=== PATIENT | male | born 1955 | race Caucasian/White ===

== ENCOUNTER → 2016-09-15 | Outpatient (CLI) | payer OTHER ==
--- NOTE | 2016-09-15 11:46 | DX ---
Chest, PA and Lateral Views, 3 Views Total - September 15, 2016, at 11:04 a.m. Clinical History: 61-year-old male with a cough, fever, and shortness of breath for 2 weeks. Rule out pneumonia. ICD-10 Diagnostic Code: R05. Comparison Study: Chest, dated September 09, 2013. Findings: The cardiac size is normal. There is a moderate degree of central perihilar bronchial thic kening. There is no confluent infiltrate, pleural effusion, peripheral interstitial edema, or pneumot horax. There is eventration of the anterior right hemidiaphragm. There are degenerative features of t he spine. The trachea is midline. Impression: Moderate perihilar bronchitis, without a focal infiltrate.
== END ==
LOC: BRMIMAGING 10:59
PROVIDERS: ATTEND Physician Assistant Medical
DX: J40 Bronchitis, not specified as acute or chronic (principal)
CPT/HCPCS: 71020-PO

== ENCOUNTER 2018-05-31 16:13 | Inpatient (IN) | payer OTHER ==
--- NOTE | 2018-05-31 16:55 | EDPHY ---
H & P Stated Complaint: abbie/SOB Time Seen by Provider: 05/31/18 16:55 HPI/ROS: CHIEF COMPLAINT: Dyspnea HISTORY OF PRESENT ILLNESS: The patient presents to the ED for evaluation of months of dyspnea. The patient has a history of hypertension and obstructive sleep apnea. Patient had a outpatient chest x-ray performed today which demonstrated bronchitis versus questionable pneumonia and was referred to the ED for further evaluation. The patient denies any chest pain, asymmetric calf pain or swelling. Patient does report he is having significant dyspnea on exertion and fatigue. REVIEW OF SYSTEMS: A comprehensive 10 point review of systems is otherwise negative aside from elements mentioned in the history of present illness. Source: Patient - Personal History Current Tetanus/Diphtheria Vaccine: Yes - Medical/Surgical History Hx Asthma: No Hx Chronic Respiratory Disease: No Hx Diabetes: No Hx Cardiac Disease: Yes Hx Renal Disease: No Hx Cirrhosis: No Hx Alcoholism: No Other PMH: bilat knee replacement, gallbladder removed, achilles tendon torn left, appy - Social History Smoking Status: Former smoker - Physical Exam Exam: General Appearance: Obese male, tachypneic Eyes: Pupils equal and round no pallor or injection ENT, Mouth: Mucous membranes moist Respiratory: There are no retractions, lungs are clear to auscultation Cardiovascular: Regular rate and rhythm Gastrointestinal: Abdomen is soft and nontender, no masses, bowel sounds normal Neurological: A&O, normal motor function, normal sensory exam, normal cranial nerves Skin: Old surgical in incisions on knees Musculoskeletal: Neck is supple nontender Extremities: No pedal edema, no asymmetric calf swelling or tenderness appreciated Psychiatric: Patient is oriented X 3, there is no agitation Constitutional: Initial Vital Signs Temperature (C) 36.5 C 05/31/18 16:30 Heart Rate 62 05/31/18 16:30 Respiratory Rate 25 H 05/31/18 16:30 Blood Pressure 162/86 H 05/31/18 16:30 O2 Sat (%) 90 L 05/31/18 16:30 O2 Delivery Mode Room Air Allergies/Adverse Reactions: No Known Allergies Allergy (Verified 05/31/18 18:08) Home Medications: Medication Instructions Recorded Fluticasone Nasal [Flonase Nasal 1 sprays NASAL DAILY 05/31/18 [place] (RX)] Fluticasone/Umeclidin/Vilanter 1 each IH DAILY 05/31/18 [Trelegy Ellipta 100-62.5-25] Lorcaserin HCl [Belviq Xr] 20 mg PO DAILY 05/31/18 Losartan Potassium [Cozaar 50 mg 50 mg PO DAILY 05/31/18 (*)] Travoprost Z 0.004% [Travatan Z 1 drops EACHEYE DAILY 05/31/18 0.004% (*)] Medical Decision Making - Diagnostics EKG Interpretation: EKG: Complete interpretation has been separately recorded in the [facility] archive. Summary impression: Sinus rhythm, rate 64, right bundle branch block Imaging Results: Imaging Impressions Chest X-Ray 05/31/18 15:30 Impression: Moderate bronchitis. Question mild atelectasis or early infiltrate in the left lung base. CT chest pulmonary angiogram: Negative for PE. Coronary calcifications are noted, other incidental findings present. No evidence of aortic dissection. ED Course/Re-evaluation: The patient presents the ED with months of increasing dyspnea on exertion. The patient arrives with a normal oxygen saturation. Chest x-ray demonstrated evidence of bronchitis. EKG demonstrates a sinus rhythm with a right bundle branch block. Patient was placed on a air sampling and monitoring and was noted to have a sinus bradycardia with a heart rate into the mid 30s. The patient had no hypotension with these episodes. He is only on losartan. The patient had an int indeterminately elevated D-dimer. A CT pulmonary angiogram has been ordered. Given the patient's increasing dyspnea on exertion and bradycardia I do feel he should be admitted to the hospital for observation and a comprehensive cardiac evaluation. He has no evidence of a myocardial infarction based upon the workup in the ED today. Consultation was made with Dr. Stover from the hospitalist service who will admit the patient. Differential Diagnosis: Differential diagnosis considered includes pulmonary embolism, pneumonia, pneumothorax, myocardial infarction, pericardial effusion, heart failure - Data Points Laboratory Results: Laboratory Results 05/31/18 17:12 05/31/18 17:12 05/31/18 05/31/18 05/31/18 17:15 17:12 17:12 WBC RBC Hgb Hct MCV MCH MCHC RDW Plt Count MPV Neut % (Auto) Lymph % (Auto) [place] % (Auto) Eos % (Auto) Baso % (Auto) Nucleat RBC Rel Count Absolute Neuts (auto) Absolute Lymphs (auto) Absolute Monos (auto) Absolute Eos (auto) Absolute Basos (auto) Absolute Nucleated RBC Immature Gran % Immature Gran # D-Dimer 0.53 ug/mLFEU H ug/mLFEU (0.00-0.50) Sodium 137 mEq/L mEq/L (135-145) Potassium 4.2 mEq/L mEq/L (3.3-5.0) Chloride 104 mEq/L mEq/L (97-110) Carbon Dioxide 25 mEq/l mEq/l (22-31) Anion Gap 8 mEq/L mEq/L (8-16) BUN 16 mg/dL mg/dL (7-23) Creatinine 1.0 mg/dL mg/dL (0.7-1.3) Estimated GFR > 60 Glucose 96 mg/dL mg/dL (70-100) Calcium 9.1 mg/dL mg/dL (8.5-10.4) POC Troponin I 0.01 ng/mL ng/mL (0.00-0.08) NT-Pro-B Natriuret Pep 252 pg/mL H pg/mL (0-125) 05/31/18 17:12 WBC 7.67 10^3/uL 10^3/uL (3.80-9.50) RBC 4.30 10^6/uL L 10^6/uL (4.40-6.38) Hgb 13.9 g/dL g/dL (13.7-17.5) Hct 39.3 % L % (40.0-51.0) MCV 91.4 fL fL (81.5-99.8) MCH 32.3 pg pg (27.9-34.1) MCHC 35.4 g/dL g/dL (32.4-36.7) RDW 12.2 % % (11.5-15.2) Plt Count 178 10^3/uL 10^3/uL (150-400) MPV 9.7 fL fL (8.7-11.7) Neut % (Auto) 66.1 % % (39.3-74.2) Lymph % (Auto) 19.8 % % (15.0-45.0) [place] % (Auto) 10.6 % % (4.5-13.0) Eos % (Auto) 2.3 % % (0.6-7.6) Baso % (Auto) 0.5 % % (0.3-1.7) Nucleat RBC Rel Count 0.0 % % (0.0-0.2) Absolute Neuts (auto) 5.07 10^3/uL 10^3/uL (1.70-6.50) Absolute Lymphs (auto) 1.52 10^3/uL 10^3/uL (1.00-3.00) Absolute Monos (auto) 0.81 10^3/uL H 10^3/uL (0.30-0.80) Absolute Eos (auto) 0.18 10^3/uL 10^3/uL (0.03-0.40) Absolute Basos (auto) 0.04 10^3/uL 10^3/uL (0.02-0.10) Absolute Nucleated RBC 0.00 10^3/uL 10^3/uL (0-0.01) Immature Gran % 0.7 % % (0.0-1.1) Immature Gran # 0.05 10^3/uL 10^3/uL (0.00-0.10) D-Dimer Sodium Potassium Chloride Carbon Dioxide Anion Gap BUN Creatinine Estimated GFR Glucose Calcium POC Troponin I NT-Pro-B Natriuret Pep Point of Care Test Results: Chemistry 05/31/18 17:15 POC Troponin I 0.01 ng/mL ng/mL (0.00-0.08) Departure - Departure Disposition: [facility] Acute Clinical Impression: Dyspnea, Bradycardia Condition: Good
[2018-05-31 17:25] LABS: PLATELET COUNT 178 10^3/uL (150-400)
--- NOTE | 2018-05-31 17:40 | CPEKG ---
Test Reason : OPEN Blood Pressure : / mmHG Vent. Rate : 064 BPM Atrial Rate : 064 BPM P-R Int : 190 ms QRS Dur : 158 ms QT Int : 468 ms P-R-T Axes : 040 003 004 degrees QTc Int : 483 ms Sinus rhythm Right bundle branch block Confirmed by Booker Harding ([id number]) on 05/31/2018 5:39:47 PM Referred By: Confirmed By:Booker Harding
[2018-05-31] MEDS ORDERED: IOPAMIDOL (ISOVUE 370) 100 ML BTL IV ONE (17:49)
[2018-05-31] MEDS ORDERED: ONDANSETRON 4 MG/2 ML VIAL IVP PRN (18:01)
[2018-05-31] MEDS ORDERED: ONDANSETRON DISINTEGRATING 4 MG TAB PO PRN (18:01)
[2018-05-31] MEDS ORDERED: IPRATROPIUM/ALBUTEROL 3 ML DEYVIAL IH PRN (18:01)
--- NOTE | 2018-05-31 19:04 | PDGENHP ---
History and Physical - Chief Complaint SOB, GUIDO - History of Present Illness Mr. Gordon is a 63 yo male with a PMHx of HTN, ANTON on CPAP who presents with SOB. He reports that SOB has been occurring for past few months without improvement. He reports dyspnea on exertion when walking very short distance such as across a room. He denies associated chest pain, coughing, wheezing, edema with SOB. He reports similar episode 2 yrs ago where he was hospitalized for low 02. He was not continued on oxygen at that time. He reports seeing his PCP for this problem and was prescribed Prednisone for this which did not improve symptoms. He reports PFTs in the past but does not recall their results. History Information - Allergies/Home Medication List Allergies/Adverse Reactions: No Known Allergies Allergy (Verified 05/31/18 18:08) Home Medications: Fluticasone Nasal [Flonase Nasal [place] (RX)] 1 sprays NASAL DAILY 05/31/18 [ Last Taken Unknown] Fluticasone/Umeclidin/Vilanter [Trelegy Ellipta 100-62.5-25] 1 each IH DAILY [Last Taken Unknown] Lorcaserin HCl [Belviq Xr] 20 mg PO DAILY 05/31/18 [Last Taken Unknown] Losartan Potassium [Cozaar 50 mg (*)] 50 mg PO DAILY 05/31/18 [Last Taken Unknown] Travoprost Z 0.004% [Travatan Z 0.004% (*)] 1 drops EACHEYE DAILY 05/31/18 [ Last Taken Unknown] I have personally reviewed and updated: family history, medical history, social history, surgical history - Past Medical History hypertension Additional medical history: sleep apnea - Family History Negative for: lung disease - Social History Smoking Status: Former smoker Review of Systems Review of Systems: ROS: 10pt was reviewed & negative except for what was stated in HPI & below Physical Exam Physical Exam: Temp Pulse Resp BP Pulse Ox 36.5 C 61 16 145/83 H 93 05/31/18 16:30 05/31/18 18:00 05/31/18 18:00 05/31/18 18:00 05/31/18 18:00 Constitutional: no apparent distress Eyes: PERRL Ears, Nose, Mouth, Throat: moist mucous membranes Cardiovascular: bradycardia, No edema Respiratory: clear to auscultation, reduced air movement Gastrointestinal: soft, non-tender abdomen Genitourinary: no bladder tenderness Skin: warm Musculoskeletal: no muscle tenderness Neurologic: AAOx3 Psychiatric: interacting appropriately Lymph, Heme, Immunologic: No ecchymoses, No petechiae Lab Data & Imaging Review 05/31/18 17:12 05/31/18 17:12 WBC 7.67 10^3/uL (3.80-9.50) 05/31/18 17:12 RBC 4.30 10^6/uL (4.40-6.38) L 05/31/18 17:12 Hgb 13.9 g/dL (13.7-17.5) 05/31/18 17:12 Hct 39.3 % (40.0-51.0) L 05/31/18 17:12 MCV 91.4 fL (81.5-99.8) 05/31/18 17:12 MCH 32.3 pg (27.9-34.1) 05/31/18 17:12 MCHC 35.4 g/dL (32.4-36.7) 05/31/18 17:12 RDW 12.2 % (11.5-15.2) 05/31/18 17:12 Plt Count 178 10^3/uL (150-400) 05/31/18 17:12 MPV 9.7 fL (8.7-11.7) 05/31/18 17:12 Neut % (Auto) 66.1 % (39.3-74.2) 05/31/18 17:12 Lymph % (Auto) 19.8 % (15.0-45.0) 05/31/18 17:12 [place] % (Auto) 10.6 % (4.5-13.0) 05/31/18 17:12 Eos % (Auto) 2.3 % (0.6-7.6) 05/31/18 17:12 Baso % (Auto) 0.5 % (0.3-1.7) 05/31/18 17:12 Nucleat RBC Rel Count 0.0 % (0.0-0.2) 05/31/18 17:12 Absolute Neuts (auto) 5.07 10^3/uL (1.70-6.50) 05/31/18 17:12 Absolute Lymphs (auto) 1.52 10^3/uL (1.00-3.00) 05/31/18 17:12 Absolute Monos (auto) 0.81 10^3/uL (0.30-0.80) H 05/31/18 17:12 Absolute Eos (auto) 0.18 10^3/uL (0.03-0.40) 05/31/18 17:12 Absolute Basos (auto) 0.04 10^3/uL (0.02-0.10) 05/31/18 17:12 Absolute Nucleated RBC 0.00 10^3/uL (0-0.01) 05/31/18 17:12 Immature Gran % 0.7 % (0.0-1.1) 05/31/18 17:12 Immature Gran # 0.05 10^3/uL (0.00-0.10) 05/31/18 17:12 D-Dimer 0.53 ug/mLFEU (0.00-0.50) H 05/31/18 17:12 Sodium 137 mEq/L (135-145) 05/31/18 17:12 Potassium 4.2 mEq/L (3.3-5.0) 05/31/18 17:12 Chloride 104 mEq/L (97-110) 05/31/18 17:12 Carbon Dioxide 25 mEq/l (22-31) 05/31/18 17:12 Anion Gap 8 mEq/L (8-16) 05/31/18 17:12 BUN 16 mg/dL (7-23) 05/31/18 17:12 Creatinine 1.0 mg/dL (0.7-1.3) 05/31/18 17:12 Estimated GFR > 60 05/31/18 17:12 Glucose 96 mg/dL (70-100) 05/31/18 17:12 Calcium 9.1 mg/dL (8.5-10.4) 05/31/18 17:12 POC Troponin I 0.01 ng/mL (0.00-0.08) 05/31/18 17:15 NT-Pro-B Natriuret Pep 252 pg/mL (0-125) H 05/31/18 17:12 Visualized and Interpreted Chest x-ray results: Yes Chest X-Ray results: no infiltrate Visualized and Interpreted EKG results: Yes EKG Interpretation: Positive for: right bundle branch block Assessment & Plan Assessment: Dyspnea (Acute) - Ongoing for months, recently rx steroids by PCP without improvement - Differential includes COPD, Pulm HTN, CHF, Bronchitis, PNA, ILD, Obesity Hypoventilation Syndrome, Symptomatic Bradycardia - CXR shows moderate bronchitis, questionable LLL infiltrate - Will hold off on abx for now given duration of symptoms, lack of fever, elevated WBC count - CTA negative for PE, did show lung nodule - Ordered TTE to evaluate for CHF, R Heart function (given obesity and ANTON, may be component of Pulm HTN) - Trop negative, BNP 250 (no baseline, no edema noted on exam) - Continue home Trelegy for now (no wheezing on exam and denied in ROS) - Obtain PFT records, consult pulmonology if needed Bradycardia (Acute) - HR 64 on EKG, reported as dropping to 30's - No sign of heart block, pauses on EKG - Monitor on telemetry Lung Nodule - Seen on CT, f/u on 6-12 months to assess growth HTN - Continue home Losartan FEN: PRN PPx: Lovenox Diet: Regular Dispo: Admit to Medicine
[2018-05-31] MEDS: ACETAMINOPHEN 325 MG TAB PO PRN (19:33)
[2018-06-01] MEDS: VILANTEROL IH SCH (09:08)
[2018-06-01] MEDS: UMECLIDINIUM IH SCH (09:08)
[2018-06-01] MEDS: [UNRECOGNIZED DRUG - OTHER] IH SCH (09:08)
[2018-06-01] MEDS: LOSARTAN POTASSIUM 50 MG TAB PO SCH (10:00)
--- NOTE | 2018-06-01 10:21 | PDMN ---
Medical Necessity Medical necessity: [facility] Cardiology GRG yo w/ acute dyspnea, tried outpt steroids w/o improvement and now w/ bradycardia dropping to 30s, EKG +R BBB. CXR w/ mod bronchitis, CTA showed lung nodule, TTE ordered to eval cardiac issues, CHF. Hypertensive, BNP elevated 252, D-Dimer elevated, PT/OT evals pending, stress tests ordered and pending, cont TELE monitoring. Anticipate> 2MN for ongoing monitoring, diagnostic testing and treatment. hx HTN, ANTON on CPAP, obesity
[2018-06-01] MEDS: FLUTICASONE NASAL 120 SPRAYS/16 GM MDI EACHNARE SCH (10:42)
[2018-06-01] MEDS: TRAVOPROST Z 0.004% 2.5 ML OPHT.BTL EACHEYE SCH (10:43)
[2018-06-01] MEDS: [UNRECOGNIZED DRUG - OTHER] PO SCH (10:43)
[2018-06-01] MEDS ORDERED: REGADENOSON 0.4 MG/5 ML SYR IVP ONE (11:05)
--- NOTE | 2018-06-01 11:48 | ECHO ---
[email or web address] [address] Main: [phone] Fax: [email or web address] Echocardiogram Name: GINGER SHOEMAKER MR#: [id number] Study Date: 06/01/2018 Study Time: 07:30 AM Date of : 1955 Age: 63 year(s) Height: 165.1 cm (65 in.) Weight: 170.55 kg (376 lb.) BSA: 2.59 m2 Gender: Male Examination: Echo Indication: GUIDO for months Image Quality: Technically Difficult Contrast: Requested by: Yassine Stover BP: 138 mmHg/90 mmHg Heart Rate: Rhythm: Indication: GUIDO for months Procedure Staff Gear Tester: Brooklyn Paula RDCS Reading Physician: Lea Porter MD Requesting Provider: Conclusions: Normal size left ventricle. Mild concentric LV hypertrophy. Normal global systolic LV function. EF is 55 %. No regional wall motion abnormality. Normal diastolic LV function. Mildly dilated right ventricle. Normal RV function. The left atrium is mildly dilated. Mild mitral valve regurgitation is present. AV Sclerosis/Mild . Mild tricuspid regurgitation is present. Right ventricular systolic pressure measures 30mmHg. No pericardial effusion. There is no previous echocardiogram for comparison. Measurements: Chambers Valvular Assessment AV/MV Valvular Assessment TV/PV Normal Normal Normal Name Value Range Name Value Range Name Value Range Ao Moira (2D): 3.3 cm (1.4 cm-2.6 AV Vmax: 2.10 m/s (1 m/s-1.7 TR Vmax: 2.52 mm/s ( - ) cm) m/s) TR PGmax: 25 mmHg ( - ) IVSd (2D): 1.2 cm (0.6 cm-1.1 AV maxP mmHg ( - ) syst. PAP: 30 mmHg ( - ) cm) AV meanP mmHg ( - ) PV Vmax: 0.84 m/s (0.6 m/s-0.9 LVDd (2D): 5.6 cm (4.2 cm-5.9 SHWETA (VTI): 2.5 cm ( - ) m/s) cm) MV E Vmax: 0.94 m/s ( - ) PV PGmax: 3 mmHg ( - ) LVDs (2D): 3.5 cm (2.1 cm-4 MV A Vmax: 1.03 m/s ( - ) cm) MV E/A: 0.91 ( - ) LVPWd (2D): 1.1 cm (0.6 cm-1 cm) MV PHT: 0.074 s ( - ) MVA (PHT): 3.0 s ( - ) Patient: GINGER SHOEMAKER Study Date: 06/01/2018 Page 1 of 2 07:30 AM LVOTd 2.4 cm 2.4 cm mm LVEF (BP): 55 % (>=55 %) RVDd(2D): 3.9 cm (1.9 cm-3.8 cmmm) Continued Measurements: Chambers Valvular Assessment AV/MV Valvular Assessment TV/PV Name Value Name Value Name Value LADs: 4.6 cm MV DecTime: 246 m/s CVP (est.): 5 mmHg LADs Lon.9 cm MV E' Septal: 0.09 m/s LA Area: 26.0 cm2 MV E/E' Septal: 11.00 LA Volume: 89 ml MV E/E' Lateral: 8.80 LA Volume Index: 34.4 ml/m2 RA Area: 25.6 cm2 Additional Vessels Name Value Ao Ascendin.3 cm Inferior Vena Cava: 1.8 cm Findings: Left Ventricle: Normal size left ventricle. Mild concentric LV hypertrophy. Normal global systolic LV function. EF is 55 %. No regional wall motion abnormality. Normal diastolic LV function. Right Ventricle: Mildly dilated right ventricle. Normal RV function. Left Atrium: The left atrium is mildly dilated. Right Atrium: The right atrium is normal in size. Mitral Valve: The mitral valve is normal in appearance and function. Mild mitral valve regurgitation is present. No mitral stenosis is present. Aortic Valve: The aortic valve is tri-leaflet. Trivial aortic valve regurgitation. AV Sclerosis/Mild . Tricuspid Valve: The tricuspid valve is normal in appearance and function. Mild tricuspid regurgitation is present. The pulmonary artery pressure is normal. Right ventricular systolic pressure measures 30mmHg. Pulmonic Valve: The pulmonic valve is normal in appearance and function. There is no pulmonic regurgitation seen. Aorta: The aorta is normal. Normal size aortic root measuring 3.3 cm. Normal size ascending aorta measuring 3.3 cm. IVC: The IVC is normal sized. Pericardium: No pericardial effusion. No pleural effusion. Exam Comments: Technically difficult due to patient body habitus. (No Signature Object) Patient: GINGER SHOEMAKER Study Date: 06/01/2018 Page 2 of 2 07:30 AM [id number]
--- NOTE | 2018-06-01 12:11 | PDCARST ---
CAR Stress Test Results Type of Stress Test: Lexiscan stress test Indication: cp Description of Procedure: After informed consent was obtained, pt was established to ECG, blood pressure, HR and oximetry monitoring. STRESS EKG AND HEMODYNAMIC DATA. Resting heart rate: 60 BPM. Resting ECG: SB. Resting blood pressure: 118/60 mmHg. O2 saturation at rest: 94%. Peak heart rate: 40 BPM. Peak blood pressure: no change. Pt developed Mobitz Type II. Symptoms: The patient experienced no typical symptoms of angina during stress or recovery. Stress/Infusion ECG: No change in rhythm with no significant ST/T wave changes. Stress/infusion O2 saturation: no change Impression: Lexiscan remarkable for Mobitz Type II heart block. Conclusion: Await nuclear images.
--- NOTE | 2018-06-01 13:32 | HOSPPROG ---
Hospitalist Progress Note Assessment/Plan: Mobitz Type II Heart Block with Chronotropic Incompetency -Needs pacemaker -Keep on telemetry -Cardiology involved Morbid Obesity -BMI: 45 -Consider Journeyman Molder consultation -Encourage moderate intensity exercise for most days of the week, at least 30 minutes per day Hypertension -Encourage exercise -Continue BP medications -Losartan Obstructive Sleep Apnea -Continue CPAP/BiPAP use Pulmonary Nodules -Needs CT chest per radiology within 6 months Adrenal Lesion -Needs CT abdomen non-contrast; ordered Subjective: -Patient still feels SOB. 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 No distress, no retractions. Alert and oriented, pleasant and cooperative. Bradycardic with a pulse varying 30s-40s. Heart sounds regular. Abdominal soft , non-tender, active bowel sounds, non-distended. RUE/BLE 4/5. Radial/pedal pulses +2. Vital Signs Temp Pulse Resp BP Pulse Ox 36.7 C 64 14 114/86 H 94 06/01/18 12:33 06/01/18 12:33 06/01/18 12:33 06/01/18 12:33 06/01/18 12:33 05/31/18 06/01/18 06/02/18 05:59 05:59 05:59 Intake Total 150 Output Total 975 825 Balance -825 -825 CXR reviewed. EKG reviewed. Chart reviewed. - Time Spent With Patient Time Spent with Patient: greater than 25 minutes Time Spent with Patient: Greater than 25 minutes spent on this patients care, greater than 50% of time spent counseling, educating, and coordinating care regarding the above mentioned plan. - Pending Discharge Pending Discharge Within 24 Hours: No Pending Discharge Within 48 Hours: No - Physical Exam Constitutional: obese Eyes: PERRL, anicteric sclera, EOMI Ears, Nose, Mouth, Throat: moist mucous membranes, hearing normal, ears appear normal, no oral mucosal ulcers Cardiovascular: bradycardia Respiratory: reduced air movement Gastrointestinal: normoactive bowel sounds, soft, non-tender abdomen, no palpable masses Genitourinary: no bladder fullness, no bladder tenderness, no renal bruits Skin: no rashes or abrasions, no fluctuance, no induration Musculoskeletal: full muscle strength, no muscle tenderness, normal joint ROM Neurologic: AAOx3, sensation intact bilaterally Psychiatric: interacting appropriately, not anxious, not encephalopathic, thought process linear Lymph, Heme, Immunologic: no cervical LAD, no supraclavicular LAD ICD10 Worksheet Patient Problems: Problems Problem Status Onset Bradycardia Acute Dyspnea Acute Mobitz (type) II atrioventricular block Acute - ICD10 Problem Qualifiers (1) Mobitz (type) II atrioventricular block
--- NOTE | 2018-06-01 15:25 | ASMTCMCOM ---
CM Note CM Note Notes: CM reviewed chart for d/c planning. Pt is a 63 y/o male who presented with SOB. Pt is employed and lives independently with his , Elizabeth. PT has evaluated him and recommended home with possibly cardiac rehab. Ot recommended home with 's assistance and recommended a shower seat for preventing SOB. No CM needs have been identified. CM will follow for changes. D/C Plan: Anticipate independent. Date Signed: 06/01/2018 03:25 PM Electronically Signed By:Rosa De La Cruz
--- NOTE | 2018-06-01 18:06 | PDCARPN ---
Cardiology Progress Note Assessment/Plan: Assessment: Presyncope Dyspnea Intermittent 2-1 av block First-degree heart block, right bundle-branch block, QRS duration 150 milliseconds Abnormal myocardial perfusion stress test Plan: Patient seen with Marisol Hernandez who has dictated consult note. Patient with history of hypertension, morbid obesity presenting with dyspnea and presyncope. Inferior ischemia on myocardial perfusion stress test with fixed apical defect. Patient denies chest discomfort, however dyspnea could be anginal equivalent. I would like to evaluate his coronary arteries prior to performing pacemaker implantation. I have discussed his case with Dr. Dameon Greenfield who is going to perform coronary angiography tomorrow morning. I have also discussed the indication for pacemaker implantation with the patient. Pacemaker is tentatively scheduled after coronary angiography tomorrow. Risks of transvenous pacemaker implantation including but not limited to , myocardial infarction, stroke, cardiac tamponade which may require emergent cardiac surgery, infection, bleeding, pneumothorax, lead dislodgement and risks of sedation/anesthesia were discussed. Long-term issues like pacemaker pocket erosion, lead failure, venous stenosis, superior vena cava syndrome, need for lead extraction were discussed. Need for close long-term follow-up in our device clinic was emphasized. Need for generator change was discussed. 06/01/18 18:03 Objective: Vital Signs (8 Hrs) Temp Pulse Resp BP Pulse Ox 06/01/18 17:01 36.6 C 65 20 127/62 H 91 L 06/01/18 13:38 43 L 94 06/01/18 12:33 36.7 C 64 14 114/86 H 94 Intake/Output (24 Hrs) 05/31/18 06/01/18 06/02/18 11:59 11:59 11:59 Intake Total 150 Output Total 1800 350 Balance -1650 -350 Intake: Oral (ml) 150 IV Intake (ml) 0 Output: Urine (ml) 1800 350 Urinal 1800 350 Other: Weight 173.131 kg Number of Voids Toilet 1 Urinal 1 Result Diagrams: 05/31/18 17:12 05/31/18 17:12 Cardiac Labs: Cardiac Lab Results (72 Hrs) 06/01/18 06:47 Troponin I < 0.012 ICD10 Worksheet Patient Problems: Problems Problem Status Onset Dyspnea Acute Bradycardia Acute Mobitz (type) II atrioventricular block Acute
--- NOTE | 2018-06-01 18:13 | GCON ---
CARDIOLOGY CONSULTATION DATE OF CONSULTATION: 06/01/2018 REFERRING PHYSICIAN: Conor Harris MD We were asked by Dr. Harris of [facility] to evaluate Mr. Gordon for second-degree heart bloc k. HISTORY OF PRESENT ILLNESS: Mr. Rickie Gordon is a 63-year-old male with history of treated sleep multigrapher ea, hypertension, morbid obesity, who was admitted from his primary care physician's office after not ing variable heart rates, extreme fatigue and dyspnea as chief complaints. He reports probably a 2-y ear history of symptoms. He had a hospitalization at another facility for this and no conclusive sonia gnosis was made at that time. Over the past 2 months, he has noted worsening symptoms with dyspnea o n minimal exertion. He will get out of his truck and walk to the back of the truck and note dizzines s, to the point that he has to hold on in order to avoid injury. He denies any dom syncope. He duffy s not noted any palpitations with this. He reports that he is compliant with CPAP per DOT requiremen ts. He keeps track of his CPAP readings and he has noted that he gets adequate therapy. He denies a ny chest pain, fever, chills, cough, hemoptysis, dysuria, hematuria, or changes in bowel habit. PAST MEDICAL HISTORY: Hypertension, ANTON with CPAP, obesity with a BMI of 45, previous knee infection s after surgical repairs. PAST SURGICAL HISTORY: Bilateral knee replacements, multiple right knee surgeries, cholecystectomy, tonsil and adenoid, and omental surgery. FAMILY HISTORY: Father of CHF and alcoholism. Brother of alcoholism. Maternal uncle had a massive PR and at age 55. Mother at age 87 of metastatic cervical cancer. SOCIAL HISTORY: Patient is . He has 3 adult children. He is a former smoker, having quit 12 years ago. He reports only occasional alcohol use. MEDICATIONS: Outpatient medications include Trelegy Ellipta, Travatan eyedrops, Cozaar, Belviq, Flon ase. ALLERGIES: No known drug allergies. PHYSICAL EXAMINATION: VITAL SIGNS: BP of 114/86, heart rate of 64, respirations 14, O2 saturation 9 4% on room air, temp of 98.1 degrees Fahrenheit. GENERAL: He is a very pleasant male, in no apparen t distress. EYES: VERONICA. HEART: Regular rate and rhythm with no rubs, gallops, or murmurs. LUNGS: Clear to auscultation. ABDOMEN: Obese with normoactive bowel sounds. SKIN: Warm and dry. PSYCH: Normal mood and affect. : No Wagner present. NEURO: No focal deficits detected. LABORATORY DATA: BMP with sodium 137, potassium 4.2, chloride 104, CO2 25, BUN 16, creatinine 1, glu cose of 96. NT-proBNP of 252. Troponins are negative x2. CBC with WBC 7.67, hemoglobin 13.9, hemat ocrit 39.3, platelet count 178. D-dimer of 0.53. Chest CTA reviewed shows coronary atherosclerosis, a gastric lipoma, adrenal lesion, and a non-calcif ied pulmonary nodule. Echo reviewed shows EF of 55%, with mildly dilated right ventricle with normal RV function. There is mild MR, mild , RVSP of 30. A 12-lead ECG personally interpreted reveals sinus rhythm with right bundle branch block, borderline 1st degree AV block. IMPRESSION AND PLAN: 1. Second-degree heart block. This was reviewed with Dr. Will. Our recommendations are permanent pa cemaker implantation. Risks, benefits, and alternatives were reviewed with patient and he is agreeab le to proceed to permanent pacemaker implantation. 2. Coronary artery disease. This is a new diagnosis based on the coronary CTA. His nuclear stress test results are pending at this time. At minimum, he should be started on aspirin and statin therap y. We will await results of the nuclear stress test before proceeding to any further invasive cardia c testing. 3. Hypertension. His blood pressure appears adequately controlled. His losartan is being continued . 4. Pulmonary nodule and adrenal lesion. These may be followed up in the outpatient setting. /[id number]/MODL
[2018-06-01] MEDS: ENOXAPARIN 40 MG/0.4 ML SYR SC SCH (21:11)
[2018-06-02 04:08] LABS: PLATELET COUNT 186 10^3/uL (150-400)
[2018-06-02 04:12] LABS: INR 1.09 (0.83-1.16); PROTIME(PATIENT) 14.3 SEC (12.0-15.0)
[2018-06-02] MEDS ORDERED: NS 1,000 ML IV ONE (06:00)
[2018-06-02] MEDS ORDERED: BACITRACIN IRRIGATION/NS 50,000 UNITS/1,000 ML BTL IRR ONE (06:00)
[2018-06-02] MEDS ORDERED: ceFAZolin 2 GM/DEXTROSE 100 ML IV ONE (06:00)
[2018-06-02] MEDS ORDERED: ASPIRIN EC 325 MG TAB PO ONE ×2 (06:06→07:27)
[2018-06-02] MEDS ORDERED: DIAZEPAM 5 MG TAB PO ONE (06:06)
[2018-06-02] MEDS ORDERED: FAMOTIDINE 20 MG TAB PO ONE (06:06)
[2018-06-02] MEDS ORDERED: diphenhydrAMINE 25 MG CAP PO ONE ×2 (06:06→07:27)
[2018-06-02] MEDS ORDERED: FAMOTIDINE 20 MG TAB ONE (07:27)
[2018-06-02] MEDS ORDERED: DIAZEPAM 5 MG TAB ONE (07:27)
--- NOTE | 2018-06-02 08:36 | PDHPUP ---
History & Physical Update H&P update statement: This history and physical update is based on an assessment of the patient which was completed after admission or registration (within 24 hours), but prior to the surgery/procedure. H&P update: H&P reviewed & patient examined, no change in patient's condition since H&P completed (Eran test on right wrist normal at less than 5 sec.)
--- NOTE | 2018-06-02 08:37 | PDPROPOC ---
Sedation Plan of Care Sedation Plan of Care: vital signs stable, mental status noted, patient educated of risks, benefits, alternatives, patient can tolerate sedation ASA Classification: ASA 2 Planned drugs: fentanyl, midazolam Mallampati Score: Class 3 Mallampati Reference Image: Patient passed 3-3-2 rule?: Yes
[2018-06-02] MEDS ORDERED: fentaNYL 100 MCG/2 ML INJ ONE ×3 (08:39→12:36)
[2018-06-02] MEDS ORDERED: HEPARIN 10,000 UNIT/10 ML MDV (1,000 UNIT/ML) ONE (08:39)
[2018-06-02] MEDS ORDERED: LIDOCAINE 1% 300 MG/30 ML SDV ONE ×2 (08:39→12:05)
[2018-06-02] MEDS ORDERED: MIDAZOLAM 2 MG/2 ML VIAL ONE ×2 (08:39→09:26)
[2018-06-02] MEDS ORDERED: VERAPAMIL 5 MG/2 ML VIAL ONE (08:39)
[2018-06-02] MEDS ORDERED: IOPAMIDOL (ISOVUE-370) 150 ML BTL IV ONE (08:40)
[2018-06-02] MEDS: UMECLIDINIUM IH SCH (09:18)
[2018-06-02] MEDS: [UNRECOGNIZED DRUG - OTHER] IH SCH (09:18)
[2018-06-02] MEDS: VILANTEROL IH SCH (09:18)
--- NOTE | 2018-06-02 09:56 | HOSPPROG ---
Hospitalist Progress Note Assessment/Plan: Mobitz Type II Heart Block with Chronotropic Incompetency -Needs pacemaker -Keep on telemetry -Cardiology involved, LHC today and PPM placement Morbid Obesity -BMI: 45 -Consider Front Office Java Developer consultation -Encourage moderate intensity exercise for most days of the week, at least 30 minutes per day Hypertension -Encourage exercise -Continue BP medications -Losartan Obstructive Sleep Apnea -Continue CPAP/BiPAP use Pulmonary Nodules -Needs CT chest per radiology within 6 months Adrenal Lesion -Needs CT abdomen non-contrast; ordered Dispo: Pending clinical course Subjective: Patient denies any complaints this AM Objective: Vital Signs Temp Pulse Resp BP Pulse Ox 36.8 C 56 L 14 132/73 H 92 06/02/18 03:38 06/02/18 03:38 06/02/18 03:38 06/02/18 03:38 06/02/18 03:38 Laboratory Results 06/02/18 03:28 06/02/18 03:28 06/01/18 06/02/18 06/03/18 05:59 05:59 05:59 Intake Total 150 Output Total 975 1600 Balance -825 -1600 PT 14.3 SEC (12.0-15.0) 06/02/18 03:28 INR 1.09 (0.83-1.16) 06/02/18 03:28 - Physical Exam Constitutional: no apparent distress Eyes: PERRL Ears, Nose, Mouth, Throat: moist mucous membranes Cardiovascular: regular rate and rhythym Respiratory: no respiratory distress Gastrointestinal: soft, non-tender abdomen Genitourinary: no bladder fullness Skin: warm Neurologic: AAOx3 Psychiatric: interacting appropriately ICD10 Worksheet Patient Problems: Problems Problem Status Onset Bradycardia Acute Dyspnea Acute Mobitz (type) II atrioventricular block Acute
[2018-06-02] MEDS ORDERED: HYDROCODONE/APAP 5/325 TAB PO PRN (10:18)
[2018-06-02] MEDS ORDERED: ATROPINE SULFATE 1 MG/10 ML SYR IVP PRN (10:18)
--- NOTE | 2018-06-02 10:33 | PDDXCAT ---
Diagnostic Cath Note - . Date: 06/02/18 Shoes Hand Sewer: Jean Pierre Indication: other (Risk factors for CAD,2nd degree typeII AV block, and abnormal nuclear stress test.) - Procedure Access: right wrist Procedure: left heart catheterization, coronary angiography, left ventriculogram - Materials Left Heart Cath size: 5F Left Heart Cath materials: pigtail, other (TIG) - Findings-Left Heart Catheterization LM: Distal left main 30-40%. LAD: Ostial LAD 30-40%; otherwise minimal irregularities. LCX: Minimal irregularities. RCA: Mild to moderate disease up to 40-50% in the proximal to mid-RCA. LVEF: 50% Wall motion: No regional variation in contractility. Complications: None Estimated blood loss: <50ml Closure method: TR Band Assessment: 1) Low normal LV systolic function. 2) Mild to moderate coronary atherosclerosis without flow-limiting lesions. Patient Problems: Problems Problem Status Onset Bradycardia Acute Dyspnea Acute Mobitz (type) II atrioventricular block Acute
--- NOTE | 2018-06-02 12:03 | PDGENHP ---
History & Physical Chief Complaint: dizziness History of Present Illness: dizziness Relevant Physical Exam: s1s2 rrr cta ao3 Cardiorespiratory Assessment: for pacemaker implant for 2:1 AV block
[2018-06-02] MEDS ORDERED: BUPIVACAINE 0.75% 10 ML SDV ONE (12:05)
[2018-06-02] MEDS ORDERED: IOPAMIDOL (ISOVUE-300) 100 ML BTL ONE (12:05)
--- NOTE | 2018-06-02 12:27 | PDANEPAE ---
ANE History of Present Illness Pacemaker ANE Past Medical History - Cardiovascular History Hx Hypertension: Yes Hx Arrhythmias: Yes Hx Chest Pain: No Hx Coronary Artery / Peripheral Vascular Disease: No Hx CHF / Valvular Disease: No - Pulmonary History Hx COPD: No Hx Oxygen in Use at Home: Yes O2 in Use at Home (L/minute): 3 Hx Sleep Apnea: Yes - Endocrine History Hx Diabetes: No Hypothyroid: No Hyperthyroid: No Obesity: severe - Chronic Pain History Chronic Pain: No ANE Review of Systems Review of Systems: - Exercise capacity METS (RN): 3 METS - Systems Respiratory: Reports: shortness of breath Gastrointestinal: Reports: other (Denies GERD) ANE Patient History - Allergies Allergies/Adverse Reactions: No Known Allergies Allergy (Verified 05/31/18 18:08) - Home Medications Home Medications: Fluticasone Nasal [Flonase Nasal [place] (RX)] 1 sprays NASAL DAILY 05/31/18 [ Last Taken Unknown] Fluticasone/Umeclidin/Vilanter [Trelegy Ellipta 100-62.5-25] 1 each IH DAILY [Last Taken Unknown] Lorcaserin HCl [Belviq Xr] 20 mg PO DAILY 05/31/18 [Last Taken Unknown] Losartan Potassium [Cozaar 50 mg (*)] 50 mg PO DAILY 05/31/18 [Last Taken Unknown] Travoprost Z 0.004% [Travatan Z 0.004% (*)] 1 drops EACHEYE DAILY 05/31/18 [ Last Taken Unknown] - NPO status NPO Status: no food or drink >8 hours - Anes Hx Anes Hx: no prior problems - Smoking Hx Smoking Status: Former smoker - Alcohol Use Alcohol Use: Other (Daily) - Family Anes Hx Family Anes Hx: neg - N/A ANE Labs/Vital Signs - Labs Result Diagrams: 06/02/18 03:28 06/02/18 03:28 - Vital Signs Blood Pressure: 132/73 Heart Rate: 56 Respiratory Rate: 14 O2 Sat (%): 92 Height: 195.58 cm Weight: 173.131 kg ANE Physical Exam - Airway Neck exam: decreased ROM Mallampati Score: Class 3 - Pulmonary Pulmonary: no rales or rhonchi, other (Sao2 94 nasal canula) - ASA Status ASA Status: IV ANE Anesthesia Plan Anesthesia Plan: GA w LMA Specialized Airway: video laryngoscope
[2018-06-02] MEDS ORDERED: PROPOFOL/EMULSION 500 MG/50 ML BOTTLE IV ONE ×2 (12:36→13:09)
[2018-06-02] MEDS ORDERED: DEXAMETHASONE 4 MG/ML VIAL ONE (12:36)
[2018-06-02] MEDS ORDERED: GLYCOPYRROLATE 0.2 MG/1 ML VIAL ONE ×2 (12:37)
--- NOTE | 2018-06-02 13:45 | EPPROC ---
Electrophysiology Procedure Note: PROCEDURE PERFORMED: 1. Implantation of an A/V Pacemaker 2. Subclavian vein angiography 3. Fluoroscopy INDICATION: 2nd degree AV block presyncope PROCEDURE NOTE: Patient presented to the cardiac catheterization laboratory in a fasting, post absorptive state . Dr. Pollock administered LMA. The left infraclavicular area was prepped and draped in the usual sterile fashion. Lidocaine plus bupivacaine was used for local anesthesia. Left subclavian venography was performed by injection of iodinated contrast into the left antecubital vein. This was done to assure patency of the vein and also to assess for any anatomical aberrations. Using a combination of blunt and sharp dissection and electrocautery, the dissection was carried down to the prepectoral fascia. A pocket was made in this anatomical plane. All bleeding was controlled with electrocautery. The pocket was packed with gauze soaked in antibiotic solution. Fluoroscopy was utilized during the entire procedure for venous access and placement of the leads. Using a direct stick technique the left extrathoracic axillary vein was accessed with 2 sticks using the modified Seldinger technique. Placement of the guidewires into the venous system was confirmed by low-pressure blood return and also by visualizing the guidewires advancing into the inferior vena cava. A purse string suture was applied around the guidewires. Two #7 Yi sheaths were advanced under fluoroscopic guidance over the guidewire. An active fixation ventricular lead was advanced into the right ventricular apex and screwed in place. An active fixation atrial lead was advanced into the right atrial appendage and screwed in place. The peel away sheaths were removed. Pacing thresholds, sensing parameters and lead impedances were measured. There was no diaphragmatic stimulation at maximum output. The leads were sutured to the prepectoral fascia with 3 nonabsorbable sutures each. The pocket was again inspected for any bleeding. The leads were attached to the pacemaker securely. The pacemaker was inserted into the pocket and secured in place with a nonabsorbable suture. Fluoroscopy was performed in MOYER and ICELANDIC planes to verify right-sided placement of the leads. Also fluoroscopy of the pacemaker pocket was performed. The pacemaker pocket was closed in 3 layers with absorbable monocryl sutures and efrain. Appropriate dressing was applied. The patient left the cardiac catheterization laboratory in stable condition. Serial Numbers: 1. Device: SJM Assurity MRI SN [id number] 2. Atrial Lead: SJM Tendril 8TC 52 SN [id number] 3. Ventricular Lead: SJM Tendril 8TC 65 SN [id number] Stimulation Thresholds & Impedance Measurements: 1. Atrial Lead P 4.7 mV 0.6 V 0.5 ms 1.3 mA 451 ohm 2. Ventricular Lead R 9.6 mV 0.5 V 0.5 ms 0.6 mA 779 ohm Dada Pacing Parameters 1. Pacing mode: DDDR 2. Lower rate: 60ppm 3. Upper tracking rate: 130 ppm 4. Upper sensor rate: 130 ppm Patient Problems: Problems Problem Status Onset Dyspnea Acute Bradycardia Acute Mobitz (type) II atrioventricular block Acute
[2018-06-02] MEDS ORDERED: ONDANSETRON 4 MG/2 ML VIAL ONE (13:54)
[2018-06-02] MEDS ORDERED: ONDANSETRON 4 MG/2 ML VIAL IVP PRN (14:35)
[2018-06-02] MEDS ORDERED: NALOXONE HCL 0.4 MG/ML INJ IVP PRN (14:35)
[2018-06-02] MEDS ORDERED: fentaNYL 100 MCG/2 ML INJ IVP PRN (14:35)
--- NOTE | 2018-06-02 14:37 | POSTANESTH ---
Post Anesthetic Evaluation Cardiovascular Status: Similar to Pre-Op Cond Respiratory Status: Similar to Pre-op Cond. Level of Consciousness/Mental Status: Can Participate in Eval Pain Control: Adequate, Prn Tx Ordered Nausea/Vomiting Control: Adequate, Prn Tx Ordered Complications Possibly Related to Anesthesia: None Noted
[2018-06-02] MEDS: ENOXAPARIN 40 MG/0.4 ML SYR SC SCH (15:50)
[2018-06-02] MEDS: FLUTICASONE NASAL 120 SPRAYS/16 GM MDI EACHNARE SCH (15:50)
[2018-06-02] MEDS: [UNRECOGNIZED DRUG - OTHER] PO SCH (15:51)
[2018-06-02] MEDS: TRAVOPROST Z 0.004% 2.5 ML OPHT.BTL EACHEYE SCH (15:52)
[2018-06-02] MEDS: LOSARTAN POTASSIUM 50 MG TAB PO SCH (15:57)
[2018-06-02] MEDS: ACETAMINOPHEN 325 MG TAB PO PRN (17:38)
[2018-06-03 03:43] LABS: PLATELET COUNT 201 10^3/uL (150-400)
--- NOTE | 2018-06-03 06:14 | CPEKG ---
Test Reason : OPEN Blood Pressure : / mmHG Vent. Rate : 063 BPM Atrial Rate : 063 BPM P-R Int : 195 ms QRS Dur : 152 ms QT Int : 482 ms P-R-T Axes : 011 -48 020 degrees QTc Int : 494 ms Sinus rhythm RBBB and LAFB Confirmed by Michael Will ([id number]) on 06/03/2018 6:13:35 AM Referred By: Confirmed By:Michael Will
[2018-06-03 07:05] VITALS: BP 145/83
[2018-06-03] MEDS: LOSARTAN POTASSIUM 50 MG TAB PO SCH (08:59)
[2018-06-03] MEDS: [UNRECOGNIZED DRUG - OTHER] IH SCH (09:00)
[2018-06-03] MEDS: UMECLIDINIUM IH SCH (09:00)
[2018-06-03] MEDS ORDERED: ASPIRIN EC 81 MG TAB PO SCH (09:00)
[2018-06-03] MEDS ORDERED: ATORVASTATIN CALCIUM 20 MG TAB PO SCH (09:00)
[2018-06-03] MEDS: VILANTEROL IH SCH (09:00)
[2018-06-03] MEDS: FLUTICASONE NASAL 120 SPRAYS/16 GM MDI EACHNARE SCH (09:14)
[2018-06-03] MEDS: [UNRECOGNIZED DRUG - OTHER] PO SCH (09:14)
[2018-06-03] MEDS: TRAVOPROST Z 0.004% 2.5 ML OPHT.BTL EACHEYE SCH (09:15)
--- NOTE | 2018-06-03 09:15 | PDCARPN ---
Cardiology Progress Note Chief Complaint: 2nd degree heart block Assessment/Plan: Assessment: 63M PMH obesity BMI 45, htn, ANTON/CPAP, here with worsening fatigue, shortness of breath, and dizziness. He also has noted drops in heart rate. He proceeded to MPI that showed mild inferior ischemia. Additionally, he was noted to have Mobitz Type II block particularly during stress testing with Lexiscan. On review of telemetry, he had 2:1 heart block. Echo showed LVEF 55, mildly dilated RV with normal RV function, mild /MR, RVSP 30. Due to abnormal MPI, he proceeded to [facility] which showed mild-mod CAD, but nothing warranting PCI (distal LM 30-40, LAD 30-40, RCA mid-distal 40-50%). He has proceeded PPM placement 06/02/18. Plan: #. 2nd degree HB: s/p [facility] PPM we reviewed arm and work restrictions he will be set up for outpatient follow up in our device clinic #. CAD: mild- mod has been started on Atorvastatin 40 mg daily and we added ASA today follow up lipids and LFTs 6 weeks with PCP or [facility] #. mild /MR: plan for repeat echo in 2-3 years #. abdominal lymph nodes: will need outpatient follow up OK to discharge from cardiology perspective. 06/03/18 09:03 Subjective: No arm pain. No further dizziness and no dizziness currently. Reviewed/Discussed With: hospitalist (Dr. Stover) Objective: Vital Signs (8 Hrs) Temp Pulse Resp BP Pulse Ox 06/03/18 08:59 145/83 H 06/03/18 07:03 97.7 F 74 18 145/83 H 91 L 06/03/18 03:44 97.9 F 67 20 142/80 H 94 Intake/Output (24 Hrs) 06/02/18 06/03/18 06/04/18 05:59 05:59 05:59 Intake Total 2250 Output Total 1600 3450 Balance -1600 -1200 Intake: Oral (ml) 1000 IV Intake (ml) 1250 Output: Urine (ml) 1600 3450 Toilet 425 500 Urinal 1175 2950 Other: Weight 173.131 kg 173.131 kg Number of Voids Toilet 1 Urinal 1 2 Result Diagrams: 06/03/18 03:29 06/03/18 03:29 Cardiac Labs: Cardiac Lab Results (72 Hrs) 06/01/18 06:47 Troponin I < 0.012 EKG: SR, occasional A-paced, LAFB, RBBB Telemetry: reviewed- paced rhythm - Physical Exam Constitutional: no apparent distress Eyes: anicteric sclera Cardiovascular: regular rate and rhythm, no murmurs Respiratory: clear to auscultate bilat, no crackles Gastrointestinal: normoactive bowel sounds Skin: no rashes, no abrasions, warm Neurologic: AAOx3 ICD10 Worksheet Patient Problems: Problems Problem Status Onset Dyspnea Acute Bradycardia Acute Mobitz (type) II atrioventricular block Acute
--- NOTE | 2018-06-03 12:02 | PDDCSUM ---
Discharge Summary Discharge Summary: Date of Admission: 05/31/2018 Date of Discharge: 06/03/2018 Consults: Cardiology, Electrophysiology Procedures: LHC, PPM placement, TTE Hospital Course Problem List: Mobitz Type II Heart Block with Chronotropic Incompetency - EP consulted - S/p PPM placement on 06/02 without complication, post op CXR w/o pneumothorax Morbid Obesity -BMI: 45 -Encourage moderate intensity exercise for most days of the week, at least 30 minutes per day Hypertension -Encourage exercise -Continue BP medications -Losartan Obstructive Sleep Apnea -Continue CPAP/BiPAP use Pulmonary Nodules -Needs CT chest per radiology within 6 months Adrenal Lesion, Lymphadenopathy - Seen on abdominal CT, likely adenoma - Discussed with patient who is to f/u with PCP for outpatient w/u including further imaging, oncology consult, and possible biopsy Time spent on discharge was >35 minutes with >50% of time spent on patient education and counseling
--- NOTE | 2018-06-03 15:42 | CPEKG ---
Test Reason : OPEN Blood Pressure : / mmHG Vent. Rate : 076 BPM Atrial Rate : 077 BPM P-R Int : 200 ms QRS Dur : 180 ms QT Int : 454 ms P-R-T Axes : 037 -85 085 degrees QTc Int : 511 ms Sinus rhythm v paced Left ventricular hypertrophy Confirmed by Michael Will ([id number]) on 06/03/2018 3:42:11 PM Referred By: Confirmed By:Michael Will
== END 2018-06-03 13:28 | disposition home or self-care (01) | DRG 243 ==
LOC: EDSTATUS 16:13 → OBSVTOIN 18:04 → F2W 18:31
PROVIDERS: ADMIT Internal Medicine; ATTEND Internal Medicine
PROC: 02H63JZ Insertion of Pacemaker Lead into Right Atrium, Percutaneous Approach (ICD-10-PCS; principal; 2018-06-02)
PROC: 0JH636Z Insertion of Pacemaker, Dual Chamber into Chest Subcutaneous Tissue and Fascia, Percutaneous Approach (ICD-10-PCS; principal; 2018-06-02)
PROC: 02HK3JZ Insertion of Pacemaker Lead into Right Ventricle, Percutaneous Approach (ICD-10-PCS; principal; 2018-06-02)
PROC: 4A023N7 Measurement of Cardiac Sampling and Pressure, Left Heart, Percutaneous Approach (ICD-10-PCS; 2018-06-02)
PROC: B2151ZZ Fluoroscopy of Left Heart using Low Osmolar Contrast (ICD-10-PCS; 2018-06-02)
PROC: B2111ZZ Fluoroscopy of Multiple Coronary Arteries using Low Osmolar Contrast (ICD-10-PCS; 2018-06-02)
DX: I44.1 Atrioventricular block, second degree (principal); I25.10 Atherosclerotic heart disease of native coronary artery without angina pectoris; R91.1 Solitary pulmonary nodule; G47.33 Obstructive sleep apnea (adult) (pediatric); E66.01 Morbid (severe) obesity due to excess calories; Z68.42 Body mass index [BMI] 45.0-49.9, adult; E27.8 Other specified disorders of adrenal gland; R59.1 Generalized enlarged lymph nodes; I10 Essential (primary) hypertension; Z96.653 Presence of artificial knee joint, bilateral; Z87.891 Personal history of nicotine dependence
CPT/HCPCS: 71046-PN; 84484-PO; 97116-GP; 97161-GP; 97165-GO; 97530-GO; 97535-GO; A9500; C1769; C1785; C1898; J0690; J1100; J1644; J1650; J2250; J2405; J2704; J2785; J3010; Q9967

== ENCOUNTER 2018-08-19 17:32 | Inpatient (IN) | payer OTHER ==
[2018-08-19] MEDS ORDERED: PROMETHAZINE HCL 25 MG/ML INJ IVP PRN (18:26)
[2018-08-19] MEDS ORDERED: HYDROmorphONE/DILAUDID 1 MG/ML INJ IVP PRN (18:26)
[2018-08-19] MEDS ORDERED: ONDANSETRON 4 MG/2 ML VIAL IVP PRN (18:26)
[2018-08-19] MEDS ORDERED: ALBUTEROL 3 ML DEYVIAL IH PRN (18:26)
[2018-08-19] MEDS ORDERED: oxyCODONE IR 5 MG TAB PO PRN (18:26)
[2018-08-19] MEDS ORDERED: ACETAMINOPHEN 325 MG TAB PO PRN (18:26)
[2018-08-19] MEDS ORDERED: HYDROCODONE/APAP 5/325 TAB PO PRN (18:26)
[2018-08-19] MEDS ORDERED: ONDANSETRON DISINTEGRATING 4 MG TAB PO PRN (18:26)
[2018-08-19 19:36] LABS: PLATELET COUNT 192 10^3/uL (150-400)
--- NOTE | 2018-08-19 21:22 | PDGENHP ---
History and Physical - Chief Complaint GUIDO, CP, fatigue - History of Present Illness 63 yo M with PMH of second degree heart block presenting as fatigue and sob now s/p PPM placement who is sent over from his cardiologists office as a direct admit with complaints of recurrent GUIDO, severe fatigue and chest pain for the past 2 weeks. He notes it is similar to how he felt before the pacemaker but a bit worse. He describes the chest pain as dull, mild and pressure like over his anterior chest on and off for 2 weeks. It is not exertional. He notes his exercise tolerance has gone down to near nothing, and his states that he used to be relatively active but now sleeps almost all day long. He has lost some weight intentionally, about 15 pounds. He denies night sweats. He has not noticed swelling or pain in his calves, he does not have chest pain with inspiration or that is changed by position. He has been worked up at the cancer center for a left adrenal mass that was thought to be consistent with an adrenaloma but there was no work up other than imaging and the plan was to only repeat imaging if he developed symptoms. He does state that along with his fatigue and other sxs he has had issues with elevated BP that has been difficult to control and tends to run from systolics of 150 to 170s. He has headaches daily, these are not always associated with his BP being elevated but he has believed this to be the cause. He has been seeing his primary care doctor and cardiology in order to get an answer to why he is feeling so bad but there has not been a clear answer as of yet. History Information - Allergies/Home Medication List Allergies/Adverse Reactions: No Known Allergies Allergy (Verified 05/31/18 18:08) Home Medications: Fluticasone Nasal [Flonase Nasal [place]] 1 sprays EACHNARE DAILY PRN 05/31/18 [ Last Taken Unknown] Travoprost Z 0.004% [Travatan Z 0.004% (*)] 1 drops EACHEYE DAILY 05/31/18 [ Last Taken Unknown] Albuterol [Proventil Inhaler HFA (*)] 1 - 2 puffs IH BID PRN 08/19/18 [Last Taken Unknown] Atorvastatin Calcium [Lipitor 20 mg (*)] 20 mg PO HS 08/19/18 [Last Taken ] Losartan Potassium 100 mg PO DAILY 08/19/18 [Last Taken 08/19/18] I have personally reviewed and updated: family history, medical history, social history, surgical history - Past Medical History coronary artery disease (non obstructive by cath in May), hypertension Additional medical history: sleep apnea--treated. 2nd degree heart block. nocturnal hypoxia. gluacoma. left adrenal adenoma. morbid obesity - Surgical History Reports: cholecystectomy, pacemaker/AICD Additional surgical history: B knee replacement. tonsillectomy - Family History Positive for: non-pertinent - Social History Smoking Status: Former smoker Alcohol Use: Occasionally Drug Use: None Additional social history: , 3 children, works as a parcel post truck driver Review of Systems Review of Systems: ROS: 10pt was reviewed & negative except for what was stated in HPI & below Physical Exam Physical Exam: Temp Pulse Resp BP Pulse Ox 36.8 C 71 20 138/80 H 94 08/19/18 20:00 08/19/18 20:00 08/19/18 20:00 08/19/18 20:00 08/19/18 20:00 Constitutional: obese, uncomfortable Eyes: PERRL, anicteric sclera Ears, Nose, Mouth, Throat: moist mucous membranes, hearing normal Cardiovascular: regular rate and rhythym, no murmur, rub, or gallop, No edema Respiratory: reduced air movement, respiratory distress Gastrointestinal: normoactive bowel sounds, soft, non-tender abdomen Genitourinary: no bladder tenderness Skin: warm, normal color Musculoskeletal: no muscle tenderness, No asymmetric calves Neurologic: AAOx3 Psychiatric: interacting appropriately, not anxious, not encephalopathic Lab Data & Imaging Review 08/19/18 19:23 08/19/18 19:23 WBC 8.21 10^3/uL (3.80-9.50) 08/19/18 19:23 RBC 4.92 10^6/uL (4.40-6.38) 08/19/18 19:23 Hgb 15.5 g/dL (13.7-17.5) 08/19/18 19:23 Hct 44.3 % (40.0-51.0) 08/19/18 19:23 MCV 90.0 fL (81.5-99.8) 08/19/18 19:23 MCH 31.5 pg (27.9-34.1) 08/19/18 19: MCHC 35.0 g/dL (32.4-36.7) 08/19/18: RDW 12.0 % (11.5-15.2) 08/19/18: Plt Count 192 10^3/uL (150-400) 08/19/18 19: MPV 9.5 fL (8.7-11.7) 08/19/18: Neut % (Auto) 58.4 % (39.3-74.2) 08/19/18: Lymph % (Auto) 28.5 % (15.0-45.0) 08/19/18: [place] % (Auto) 9.6 % (4.5-13.0) 08/19/18: Eos % (Auto) 2.3 % (0.6-7.6) 08/19/18: Baso % (Auto) 0.7 % (0.3-1.7) 08/19/18: Nucleat RBC Rel Count 0.0 % (0.0-0.2) 08/19/18: Absolute Neuts (auto) 4.79 10^3/uL (1.70-6.50) 08/19/18: Absolute Lymphs (auto) 2.34 10^3/uL (1.00-3.00) 08/19/18: Absolute Monos (auto) 0.79 10^3/uL (0.30-0.80) 08/19/18: Absolute Eos (auto) 0.19 10^3/uL (0.03-0.40) 08/19/18: Absolute Basos (auto) 0.06 10^3/uL (0.02-0.10) 08/19/18: Absolute Nucleated RBC 0.00 10^3/uL (0-0.01) 08/19/18: Immature Gran % 0.5 % (0.0-1.1) 08/19/18: Immature Gran # 0.04 10^3/uL (0.00-0.10) 08/19/18: D-Dimer 0.49 ug/mLFEU (0.00-0.50) 08/19/18 19:23 Sodium 140 mEq/L (135-145) 08/19/18 19:23 Potassium 4.2 mEq/L (3.5-5.2) 08/19/18 19:23 Chloride 108 mEq/L (97-110) 08/19/18 19:23 Carbon Dioxide 23 mEq/l (22-31) 08/19/18 19:23 Anion Gap 9 mEq/L (6-14) 08/19/18 19:23 BUN 24 mg/dL (7-23) H 08/19/18 19:23 Creatinine 1.1 mg/dL (0.7-1.3) 08/19/18 19:23 Estimated GFR > 60 08/19/18 19:23 Glucose 114 mg/dL (70-100) H 08/19/18 19:23 Hemoglobin A1c 5.6 % (4.0-6.0) 08/19/18 19: Estim Average Glucose 114 mg/dL (68-126) 08/19/18 19: Calcium 9.2 mg/dL (8.5-10.4) 08/19/18 19: Phosphorus 4.6 mg/dL (2.5-4.5) H 08/19/18: Magnesium 1.9 mg/dL (1.6-2.3) 08/19/18 19:23 Total Bilirubin 0.4 mg/dL (0.1-1.4) 08/19/18 19:23 AST 18 IU/L (17-59) 08/19/18 19:23 ALT 29 IU/L (21-72) 08/19/18 19:23 Alkaline Phosphatase 73 IU/L (38-126) 08/19/18 19:23 Troponin I < 0.012 ng/mL (0.000-0.034) 08/19/18 19:23 Total Protein 6.4 g/dL (6.3-8.2) 08/19/18 19:23 Albumin 4.1 g/dL (3.5-5.0) 08/19/18 19:23 TSH 3.220 uIU/mL (0.465-4.680) 08/19/18 19:23 Cortisol PM Sample 1.7 ug/dL (1.7-14.1) 08/19/18 19:23 Visualized and Interpreted EKG results: Yes EKG additional interpertation: v paced rhythm Assessment & Plan Assessment: 63 yo M with PMH that includes ANTON, morbid obesity, HTN presenting with ongoing fatigue, guido, chest pain, WATKINS # fatigue: patients biggest complaint really is that he is essentially so fatigued that he sleeps all day, etiology unclear, differential fairly broad. Does have ANTON but this is treated and no sig pulm htn to suggest that this is likely the cause. Echo performed at cardiology office unchanged with normal EF and no significant valvular abnormalities. Nothing to suggest subacute infection. TSH wnl, LFTs wnl, vitals other than HTN wnl. Given chronic WATKINS consider temporal arteritis will check esr/crp. Given known adrenal mass and difficult to control HTN consider [place]'s/pheo/or aldosteronoma as below. # chest pain: ongoing for 2 weeks with initial w/u reassuring, dimer negative making PE very unlikely. will monitor on tele, serial trops/serial ecg. Chest score of 6, patient unable to exercise so will proceed with lexiscan MPI in the am. Cardiology will follow while patient in house # left adrenal mass: seen by oncology recently for this, has not been worked up to be sure this is not a functional adenoma--given chronic WATKINS, persistent and difficult to control HTN and worsening progressive fatigue w/u for Raad's/ pheo or aldosteronoma is underway. Dex suppression test ordered for overnight, plasma metanephrines and serum aldosterone and renin levels. # ANTON: on APAP at home, will continue in house # morbid obesity: raising concerns for Cushings,lifestyle modification recommended # 2nd degree AV block: PPM in place, pacer was interrogated today at Cardiology office with normal function # IP status, given multiple active issues and significant weakness making patient unsafe at home he will require > 48 hours stay Patient new to my care. Old records reviewed and summarized as above. Care plan reviewed with cardiology as above. Further hx obtained from patients present at bedside.
[2018-08-19] MEDS ORDERED: FLUTICASONE NASAL 120 SPRAYS/16 GM MDI EACHNARE PRN (21:29)
[2018-08-19] MEDS ORDERED: ALBUTEROL 60 PUFFS/8 GM MDI IH PRN (21:29)
[2018-08-19] MEDS ORDERED: NITROGLYCERIN 0.4 MG BTL SL PRN (21:38)
[2018-08-19] MEDS ORDERED: DEXAMETHASONE 0.5 MG TAB PO ONE (23:00)
--- NOTE | 2018-08-20 04:46 | PDMN ---
Medical Necessity Medical necessity: MCG: grg musculoskeletal disease: pt presents with severe fatigue, CP, zuñiga, duffy, PMH: ANTON, morbid obesity, HTN, adrenal mass- not worked up, 2nd degree av block, pt with pacemaker- anticipate > 2 MN ongoing med nec care, further workup, monitoring and tx.
[2018-08-20] MEDS: TRAVOPROST Z 0.004% 2.5 ML OPHT.BTL EACHEYE SCH (08:08)
[2018-08-20] MEDS: LOSARTAN POTASSIUM 50 MG TAB PO SCH (08:11)
[2018-08-20] MEDS: ENOXAPARIN 40 MG/0.4 ML SYR SC SCH ×2 (08:13→21:17)
[2018-08-20] MEDS: ASPIRIN 325 MG TAB PO SCH (08:13)
[2018-08-20] MEDS ORDERED: ASPIRIN EC 81 MG TAB PO SCH (09:00)
[2018-08-20] MEDS ORDERED: REGADENOSON 0.4 MG/5 ML SYR IVP ONE (09:14)
--- NOTE | 2018-08-20 10:15 | CPR ---
DATE OF PROCEDURE: 08/20/2018 PROCEDURE: Lexiscan nuclear stress test. REASON FOR TEST: Chest pain, dyspnea, fatigue, right bundle branch block with permanent pacemaker. Resting EKG shows a paced rhythm with right bundle branch block. He has a history of second-degree h eart block. Resting blood pressure 146/86, oxygen saturation 93%, heart rate 64. He has shortness o f breath. No other symptoms pre-test. STRESS PORTION: Lexiscan was injected rapidly, followed by saline flush. Cardiolite was then inject ed, followed by saline flush. He was in and out of paced rhythm. He became flushed and short of los ath, and did have some abdominal discomfort post-injection. His peak blood pressure 160/74, peak hea rt rate 78, oxygen saturation 98%. RECOVERY: He did spontaneously recover. There were no significant EKG changes. Recovery blood pres sure 162/76, heart rate 77, oxygen saturation 96%. He was given caffeine and his symptoms did sponta neously subside. At this time, he is stable for nuclear imaging. /[id number]/MODL
[2018-08-20] MEDS ORDERED: FUROSEMIDE 20 MG/2 ML VIAL IVP ONE ×2 (10:22→17:24)
--- NOTE | 2018-08-20 11:53 | PDCARPN ---
Cardiology Progress Note Chief Complaint: Dyspnea and fatigue Assessment/Plan: Assessment: # Dyspnea with associated mild chest discomfort and fatigue. D-Dimer was 0.49 borderline high. Consider further evaluation for possible PE. Will discuss further with Hospitalist. # CAD by cardiac angiogram 05/2018 showing EF 50%, non-obstructive CAD with LAD 20-30% lesion, RCA 50% lesion. Nuclear stress test today shows EF 53%, No ischemia, there is a fixed area of mild apical hypoperfusion, possible related to apical thinning. No Wall Motion Abnormalities. # 2 degree Heart Block 05/2018 with PPM placed. He was fatigued with SOB prior to PPM, and noted improvement of symptoms until 2 weeks ago. # Adrenal Mass work-up by oncology previously, consistent with adrenaloma. May need further imaging. Plan: Further evaluation for source of fatigue. 08/20/18 11:33 Subjective: constant SOB and fatigue. Reviewed/Discussed With: hospitalist, multidisciplinary team Time Spent with Patient: greater than 25 minutes Time Spent with Patient: Greater than 25 minutes spent on this patients care, greater than 50% of time spent counseling, educating, and coordinating care regarding the above mentioned plan. Objective: Vital Signs (8 Hrs) Temp Pulse Resp BP Pulse Ox 08/20/18 11:19 36.7 C 88 18 154/100 H 94 08/20/18 07:08 36.4 C 65 20 133/83 H 96 08/20/18 04:00 36.7 C 64 12 141/90 H 95 Intake/Output (24 Hrs) 08/19/18 08/20/18 08/21/18 05:59 05:59 05:59 Intake Total 450 Output Total 700 Balance -250 Intake: Oral (ml) 450 Output: Urine (ml) 700 Toilet 700 Other: Weight 168.7 kg Number of Voids Toilet 1 Result Diagrams: 08/19/18 19:23 08/19/18 19:23 Cardiac Labs: Cardiac Lab Results (72 Hrs) 08/20/18 08/20/18 08/19/18 07:40 02:40 19:23 Troponin I < 0.012 < 0.012 < 0.012 - Physical Exam Cardiovascular: regular rate and rhythm, no murmurs, no rubs Peripheral Pulses: 2+: dorsalis-pedis (R), dorsalis-pedis (L) Respiratory: no crackles, no wheezes, reduced air movement Skin: warm, other (mild LLE, ) Neurologic: AAOx3 Psychiatric: cooperative, interactive ICD10 Worksheet Patient Problems: Problems Problem Status Onset Bradycardia Acute Dyspnea Acute Mobitz (type) II atrioventricular block Acute
--- NOTE | 2018-08-20 12:13 | HOSPPROG ---
Hospitalist Progress Note Assessment/Plan: 63 yo M with PMH that includes ANTON, morbid obesity, HTN presenting with ongoing fatigue, zuñiga, chest pain, WATKINS #Dyspnea #Chest pain #CAD: by cardiac angiogram 05/2018 showing EF 50%, non-obstructive CAD with LAD 20-30% lesion, RCA 50% lesion. Nuclear stress test today shows EF 53%, No ischemia, there is a fixed area of mild apical hypoperfusion, possible related to apical thinning. No Wall Motion Abnormalities. # left adrenal mass: seen by oncology recently for this, has not been worked up to be sure this is not a functional adenoma - Raad's/pheo or aldosteronoma testing underway. # ANTON: on APAP at home, will continue in house # morbid obesity: raising concerns for Cushings,lifestyle modification recommended # 2nd degree AV block: PPM in place, pacer was interrogated today at Cardiology office with normal function #Pedal Edema Plan: The pt reports pedal edema. CXR does not reveal significant pulm edema. I ordered a BNP and this is not elevated. I will provide a one time dose of Lasix to determine clinical effect Cards is recommending consideration for P.E. given negative CV w/u. D-Dimer would argue against it. Will, however, obtain In the differential would be obstructive disease. He is not wheezy but BS are decreased. Will await CT results and consider other options including systemic steroid burst. Will schedule nebs. Obesity/Hypoventilation syndrome is also on the differential He does not have any e/o Raad's per Dexamethasone suppression testing DVT Proph: Lovenox Dispo: cont Inpatient Subjective: still with intermittent chest pain. Feels SOB. + pedal edema Objective: Vital Signs Temp Pulse Resp BP Pulse Ox 36.7 C 88 18 154/100 H 94 08/20/18 11:19 08/20/18 11:19 08/20/18 11:19 08/20/18 11:19 08/20/18 11:19 Laboratory Results 08/19/18 19:23 08/19/18 19:23 08/19/18 08/20/18 08/21/18 05:59 05:59 05:59 Intake Total 450 Output Total 700 Balance -250 - Time Spent With Patient Time Spent with Patient: greater than 35 minutes Time Spent with Patient: Greater than 35 minutes spent on this patients care, greater than 50% of time spent counseling, educating, and coordinating care regarding the above mentioned plan. - Physical Exam Constitutional: no apparent distress Eyes: PERRL Ears, Nose, Mouth, Throat: moist mucous membranes Cardiovascular: regular rate and rhythym, edema Respiratory: reduced air movement, No no respiratory distress Gastrointestinal: normoactive bowel sounds, soft, non-tender abdomen Skin: warm Neurologic: AAOx3 Psychiatric: interacting appropriately, not anxious Lymph, Heme, Immunologic: No petechiae ICD10 Worksheet Patient Problems: Problems Problem Status Onset Bradycardia Acute Dyspnea Acute Mobitz (type) II atrioventricular block Acute
[2018-08-20] MEDS ORDERED: IOPAMIDOL (ISOVUE 370) 100 ML BTL IV ONE (12:25)
[2018-08-20] MEDS: ALBUTEROL 3 ML DEYVIAL IH SCH ×2 (14:22→14:38)
--- NOTE | 2018-08-20 15:46 | ASMTCMCOM ---
CM Note CM Note Notes: 08/20/2018 Case Management Note Discussed pt during rounds. Pt admitted for dyspnea and 2nd degree heart block. PT recommending home care. Met w/pt to discuss d/c needs. Pt is and employed. Pt plans to return to work upon d/c. Pt declined home care. No other case management needs identified. Case Management d/c poc: Independent with follow up as directed. Case Management to follow. Date Signed: 08/20/2018 03:45 PM Electronically Signed By:Nidia Pollock RN
[2018-08-20] MEDS: ATORVASTATIN CALCIUM 20 MG TAB PO SCH (21:18)
[2018-08-21] MEDS: TRAVOPROST Z 0.004% 2.5 ML OPHT.BTL EACHEYE SCH (08:25)
[2018-08-21] MEDS: ENOXAPARIN 40 MG/0.4 ML SYR SC SCH ×2 (08:28→20:11)
[2018-08-21] MEDS: ASPIRIN 325 MG TAB PO SCH (08:28)
[2018-08-21] MEDS: LOSARTAN POTASSIUM 50 MG TAB PO SCH (08:28)
--- NOTE | 2018-08-21 10:43 | PDCARPN ---
Cardiology Progress Note Assessment/Plan: Assessment: # Dyspnea with associated mild chest discomfort and fatigue. D-Dimer was 0.49 borderline high. Consider further evaluation for possible PE. Will discuss further with Hospitalist. # CAD by cardiac angiogram 05/2018 showing EF 50%, non-obstructive CAD with LAD 20-30% lesion, RCA 50% lesion. Nuclear stress test today shows EF 53%, No ischemia, there is a fixed area of mild apical hypoperfusion, possible related to apical thinning. No Wall Motion Abnormalities. # 2 degree Heart Block 05/2018 with PPM placed. He was fatigued with SOB prior to PPM, and noted improvement of symptoms until 2 weeks ago. # Adrenal Mass work-up by oncology previously, consistent with adrenaloma. May need further imaging. Plan: Further evaluation for source of fatigue. 08/20/18 11:33 08/21/18 10:35 Dyspnea is improved today. CT chest showed no PE. Hospitalist gave IV Lasix yesterday to see if this would help. It DID in fact help significantly. He feels much better today. His breathing is easier, he did diurese, and his color is pink and improved. He has trace edema of B-LE today. He has had no significant cardiac findings that would prove to be the cause of his Fatigue and Abdominal and Lower extremity swelling, or Dyspnea. His symptoms may be related to the Adrenal Mass / adrenaloma That oncology has been following. Recommend to continue on low dose of Lasix for now. Return to Oncology for further evaluation and treatment. He does have an appointment scheduled with Oncology the last week in August. Subjective: I slept well, am not fatigued, and am not SOB today. Reviewed/Discussed With: hospitalist, multidisciplinary team Time Spent with Patient: greater than 25 minutes Time Spent with Patient: Greater than 25 minutes spent on this patients care, greater than 50% of time spent counseling, educating, and coordinating care regarding the above mentioned plan. Objective: Vital Signs (8 Hrs) Temp Pulse Resp BP Pulse Ox 08/21/18 08:00 36.7 C 67 18 133/80 H 93 08/21/18 04:00 36.6 C 67 20 130/84 H 94 Intake/Output (24 Hrs) 08/20/18 08/21/18 08/22/18 05:59 05:59 05:59 Intake Total 450 1360 Output Total 700 3600 Balance -250 -2240 Intake: Oral (ml) 450 1360 Output: Urine (ml) 700 3600 Toilet 700 3600 Other: Weight 168.7 kg 167.1 kg Number of Voids Toilet 1 2 Result Diagrams: 08/19/18 19:23 08/19/18 19:23 Cardiac Labs: Cardiac Lab Results (72 Hrs) 08/20/18 08/20/18 08/19/18 07:40 02:40 19:23 Troponin I < 0.012 < 0.012 < 0.012 - Physical Exam Constitutional: no apparent distress, obese Cardiovascular: regular rate and rhythm, no murmurs, no rubs, no gallops Respiratory: no crackles, no wheezes, reduced air movement Skin: warm, other (trace edema) Neurologic: AAOx3 Psychiatric: cooperative, interactive ICD10 Worksheet Patient Problems: Problems Problem Status Onset Dyspnea Acute Bradycardia Acute Mobitz (type) II atrioventricular block Acute
[2018-08-21] MEDS ORDERED: FUROSEMIDE 20 MG TAB PO ONE (11:27)
--- NOTE | 2018-08-21 13:11 | HOSPPROG ---
Hospitalist Progress Note Assessment/Plan: DIAGNOSES: * acute right-sided congestive heart failure * known sleep apnea on APap * suspect pulmonary hypertension; has known right ventricular dilation on echocardiogram, suspect he has obesity hypoventilation in addition to ANTON * known nonobstructive coronary disease, no evidence of ischemia or systolic heart failure at this time with preserved ejection fraction on nuclear stress test images * known adrenal mass being followed by Oncology, has follow-up appointment in 2 weeks for that * pacemaker in place for previous history of AV block PLANS: * Continue diuresis here with Lasix at this time * Low-sodium diet * Continue his a Pap for now but I have recommended he establish with a sleep physician for optimal management of his sleep apnea and likely pulmonary hypertension with right-sided heart failure * Recommend he be referred to Dr. Davenport in the [facility] for outpatient follow-up as well * Recommend he worked very carefully in an ongoing fashion with his primary care physician and other physicians regarding weight loss and if he is unable to achieve weight loss should be likely considered for surgical approach, and I did review this in great detail with him today * Possibly discharged home tomorrow Patient had many good questions about all of these issues and I did review them with him in detail. Patient reviewed by me with Dr. Reynolds of pulmonology today SUBJECTIVE: Feels better overall with less dyspnea after excellent diuresis with 1 dose of Lasix overnight No other new symptoms OBJECTIVE Vitals reviewed: All stable without fever [employer], my review: All sinus I&O excellent diuresis overnight, with nearly 4 lb of weight loss by weights Exam: alert oriented, very obese skin warm dry color ok resps not labored lungs diminished but otherwise clear BSs heart regular abd soft nondistended nontender, bowel sounds present limbs warm, still with some edema at ankles iv site ok Lab data: Metanephrines and aldosterone levels are still pending Objective: Vital Signs Temp Pulse Resp BP Pulse Ox 36.6 C 86 18 121/73 H 93 08/21/18 11:12 08/21/18 11:12 08/21/18 11:12 08/21/18 11:12 08/21/18 11:12 Laboratory Results 08/19/18 19:23 08/19/18 19:23 08/20/18 08/21/18 08/22/18 06:59 06:59 06:59 Intake Total 450 1360 Output Total 700 3600 Balance -250 -2240 - Time Spent With Patient Time Spent with Patient: greater than 35 minutes Time Spent with Patient: Greater than 35 minutes spent on this patients care, greater than 50% of time spent counseling, educating, and coordinating care regarding the above mentioned plan. ICD10 Worksheet Patient Problems: Problems Problem Status Onset Bradycardia Acute Dyspnea Acute Mobitz (type) II atrioventricular block Acute
--- NOTE | 2018-08-21 18:03 | CPEKG ---
Test Reason : OPEN Blood Pressure : / mmHG Vent. Rate : 070 BPM Atrial Rate : 071 BPM P-R Int : 190 ms QRS Dur : 160 ms QT Int : 424 ms P-R-T Axes : 063 019 -39 degrees QTc Int : 458 ms Sinus rhythm Right bundle branch block Confirmed by Jean Carlos Davenport ([id number]) on 08/21/2018 6:02:55 PM Referred By: Confirmed By:Jean Carlos Davenport
[2018-08-21] MEDS: ATORVASTATIN CALCIUM 20 MG TAB PO SCH (20:11)
[2018-08-22 07:23] VITALS: BP 123/84
[2018-08-22] MEDS: ASPIRIN 325 MG TAB PO SCH (08:25)
[2018-08-22] MEDS: LOSARTAN POTASSIUM 50 MG TAB PO SCH (08:25)
[2018-08-22] MEDS: ENOXAPARIN 40 MG/0.4 ML SYR SC SCH (08:25)
[2018-08-22] MEDS: TRAVOPROST Z 0.004% 2.5 ML OPHT.BTL EACHEYE SCH (08:26)
--- NOTE | 2018-08-22 10:05 | PDDCSUM ---
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 He is noted have sleep apnea and is very obese and suspected to have obesity hypoventilation syndrome. An echocardiogram done a few years ago did show right ventricular dilation suggestive of probably onset at that time of some right-sided congestive heart failure. This time his diagnosis is an acute exacerbation of right-sided heart failure with likely pulmonary hypertension. He responded quite well to Lasix diuresis with good output of volume as well as rapid improvement in his presenting dyspnea. At this point he is up walking in the hallway without any difficulty and is not requiring any oxygen. There is no evidence of any acute infection nothing ischemic and there is no sign of PE. At this time he is stable for discharge to home. However given his marked obesity, his known dilated right ventricle, and his now clinical right-sided congestive heart failure, is strongly recommended that the patient be on a low- salt diet, continue to treat his sleep apnea aggressively, exercise regularly and lose weight. This should be done with a coordinated effort between his primary care physician and other specialists. For his sleep apnea he is currently using a Pap for the past few years. Whether this is still appropriate therapy for him or not should be reassessed. Also he probably has obesity hypoventilation syndrome and pulmonary hypertension, so a pulmonology evaluation is in order. In addition now that he has right-sided heart failure following up and Dr[facility] would be appropriate. In addition his primary care physician should be involved in all of these assessments and be looking as well as his weight loss. He is already timing to take some measures to lose weight but should do this in a much more directed and goal oriented fashion. In the end if he is unable to do this with medical diet and exercise measures, he would be a good candidate at this time for bariatric surgery and I did discuss this with him in detail. PENDING TEST RESULTS: None MEDICATION CHANGES: Addition of Lasix 20 mg daily FOLLOW-UP PLAN: Will have [facility] contact him to get him set up to visit with Dr. Jean Carlos Enriquez in the Heart failure Clinic Will have him make an appointment to follow up at [facility] for right heart failure and sleep apnea, suspected obesity hypoventilation syndrome With his primary care physician this week He will continue to follow up in oncology clinic for eval of adrenal nodule, has appointment Low-sodium diet was recommended to him Regular daily physical activities recommended him Greater than 35 minutes bedside and care coordination time today
== END 2018-08-22 12:23 | disposition home or self-care (01) | DRG 292 ==
LOC: F2W 17:38
PROVIDERS: ADMIT Internal Medicine; ATTEND Internal Medicine
DX: I50.811 Acute right heart failure (principal); E66.2 Morbid (severe) obesity with alveolar hypoventilation; I27.20 Pulmonary hypertension, unspecified; I25.10 Atherosclerotic heart disease of native coronary artery without angina pectoris; D44.10 Neoplasm of uncertain behavior of unspecified adrenal gland; Z95.0 Presence of cardiac pacemaker; Z87.891 Personal history of nicotine dependence; Z96.653 Presence of artificial knee joint, bilateral
CPT/HCPCS: 82088-90; 83835-90; 97116-GP; 97161-GP; 97165-GO; 97535-GO; A9500; J1650; J1940; J2785; J7613; Q9967

== ENCOUNTER 2018-09-03 08:03 | Day surgery (SDC) | payer OTHER ==
[2018-09-03] MEDS ORDERED: DIAZEPAM 5 MG TAB PO ONE (08:07)
[2018-09-03] MEDS ORDERED: NS 1,000 ML IV ONE (08:07)
[2018-09-03] MEDS ORDERED: ASPIRIN EC 325 MG TAB PO ONE (08:07)
[2018-09-03] MEDS ORDERED: FAMOTIDINE 20 MG TAB PO ONE (08:07)
[2018-09-03] MEDS ORDERED: diphenhydrAMINE 25 MG CAP PO ONE (08:07)
[2018-09-03] MEDS ORDERED: LIDOCAINE 1% 300 MG/30 ML SDV ONE (08:48)
[2018-09-03] MEDS ORDERED: HEPARIN 10,000 UNIT/10 ML MDV (1,000 UNIT/ML) ONE (08:49)
[2018-09-03] MEDS ORDERED: VERAPAMIL 5 MG/2 ML VIAL ONE (08:49)
[2018-09-03] MEDS ORDERED: IOPAMIDOL (ISOVUE-370) 150 ML BTL IV ONE (08:49)
[2018-09-03] MEDS ORDERED: MIDAZOLAM 2 MG/2 ML VIAL ONE (08:49)
[2018-09-03] MEDS ORDERED: fentaNYL 100 MCG/2 ML INJ ONE (08:49)
[2018-09-03 09:07] LABS: PLATELET COUNT 201 10^3/uL (150-400)
[2018-09-03] MEDS ORDERED: ADENOSINE 90 MG/30 ML VIAL IV ONE ×2 (09:13→09:57)
[2018-09-03 09:23] LABS: INR 1.06 (0.83-1.16)
--- NOTE | 2018-09-03 09:26 | PDPROPOC ---
Sedation Plan of Care Sedation Plan of Care: vital signs stable, mental status noted, patient educated of risks, benefits, alternatives, patient can tolerate sedation ASA Classification: ASA 2 Planned drugs: fentanyl, midazolam Mallampati Score: Class 4 Mallampati Reference Image: Patient passed 3-3-2 rule?: Yes
--- NOTE | 2018-09-03 09:26 | PDHPUP ---
History & Physical Update H&P update statement: This history and physical update is based on an assessment of the patient which was completed after admission or registration (within 24 hours), but prior to the surgery/procedure. H&P update: H&P reviewed & patient examined, no change in patient's condition since H&P completed
[2018-09-03] MEDS ORDERED: IOPAMIDOL (ISOVUE-300) 50 ML VIAL ONE (10:33)
[2018-09-03] MEDS ORDERED: ONDANSETRON 4 MG/2 ML VIAL IVP PRN (10:55)
[2018-09-03] MEDS ORDERED: HYDROCODONE/APAP 5/325 TAB PO PRN (10:55)
--- NOTE | 2018-09-03 13:48 | PDDXCAT ---
Diagnostic Cath Note - . Date: 09/03/18 Can Dragger: Jean Pierre Indication: other (Chronic diastolic CHF and to rule out pulmonary hypertension. ) - Procedure Access: right groin Procedure: left heart catheterization, right heart catheterization - Materials Left Heart Cath size: 5F Left Heart Cath materials: pigtail Right Heart Cath size: 7F Right Heart Cath materials: PWP catheter - Findings-Left Heart Catheterization LM: No coronary angiography. Hemodynamic study only. For coronary angio, see cath report from May 2018. EDP: 14 mmHg LVEF: No LV-gram. - Findings-Right Heart Catheterization RA: 12 mmHg RV: 30/9 mmHg PA: 30/12/20 mmHg O2 sat 78.4% PAOP: 12-14 mmHg AO: 122/77/97 mmHg O2 sat 96.0% CO: 9.1 L/min CI: 3.2 L/min/sq mtr Estimated blood loss: <50ml Closure method: Angioseal Assessment: 1) Normal right heart pressures. Patient Problems: Problems Problem Status Onset Bradycardia Acute Dyspnea Acute Mobitz (type) II atrioventricular block Acute
--- NOTE | 2018-09-03 15:27 | CPEKG ---
Test Reason : OPEN Blood Pressure : / mmHG Vent. Rate : 077 BPM Atrial Rate : 077 BPM P-R Int : 205 ms QRS Dur : 163 ms QT Int : 435 ms P-R-T Axes : 033 030 -32 degrees QTc Int : 493 ms Sinus rhythm Right bundle branch block Confirmed by Gage Garcia [id number] on 09/03/2018 3:26:52 PM Referred By: Confirmed By:Gage Garcia
== END 2018-09-03 14:57 | disposition home or self-care (01) ==
LOC: FCATH 08:03
PROVIDERS: ATTEND Internal Medicine Interventional Cardiology
DX: I50.32 Chronic diastolic (congestive) heart failure (principal); R53.83 Other fatigue; R06.02 Shortness of breath; I25.10 Atherosclerotic heart disease of native coronary artery without angina pectoris; I44.1 Atrioventricular block, second degree; I11.0 Hypertensive heart disease with heart failure; H40.9 Unspecified glaucoma; Z79.82 Long term (current) use of aspirin; Z87.891 Personal history of nicotine dependence; Z95.0 Presence of cardiac pacemaker
CPT/HCPCS: C1760; J0153; J1644; J2250; J3010; Q9967